=== PATIENT | female | born 1990 | race Caucasian/White ===

== ENCOUNTER → 2018-08-28 | Outpatient (CLI) | payer BC ==
[2018-08-28 08:26] LABS: HCT 35.2 % (34.0-46.0); HGB 11.6 gm/dL (11.4-16.0); MCH 32.2 pg (25.0-35.0); MCHC 33.1 g/dL (31.0-37.0); MCV 97.5 fL (80.0-100.0); Mean Platelet Volume 7.7; Platelet Count 180 k/uL (150-450); RBC 3.61 m/uL (3.80-5.40); RDW 12.6 % (11.5-15.5); WBC 6.1 k/uL (3.8-10.6)
== END | disposition home or self-care (01) ==
LOC: LABWHC1 06:41
PROVIDERS: ATTEND Obstetrics & Gynecology
DX: Z34.82 Encounter for supervision of other normal pregnancy, second trimester (principal)
CPT/HCPCS: 36415; 82950; 85027

== ENCOUNTER 2018-09-05 13:32 | Outpatient (CLI) | payer BC ==
[2018-09-05 15:26] VITALS: BP 109/59; PULSE 86; RESP 16; TEMP 97.5
--- NOTE | 2018-09-05 16:55 | P.MSEPDOC ---
Presenting Problems - Arrival Data Date of Arrival on Unit: 09/05/18 Time of Arrival on Unit: 13:35 Mode of Transport: Ambulatory - Complaint OB-Reason for Admission/Chief Complaint: Other Comment: contractions that are not painful Medical History - Information : 2 Para: 1 Term: 1 : 0 Abortions: Spontaneous or Elective: 0 Number of Living Children: 1 - Gestational Age Gestational Age by NICOL (wks/days): 28 Weeks and 3 Days Review of Systems - Review of Systems Constitutional: No problems Breast: No problems ENT: No problems Cardiovascular: No problems Respiratory: No problems Gastrointestinal: No problems Genitourinary: No problems Musculoskeletal: No problems Neurological: No problems Skin: No problems Vital Signs - Temperature Temperature: 97.5 F Temperature Source: Tympanic - Pulse Right Brachial Pulse Rate: 86 Pulse Assessment Method: Automatic Cuff - Respirations Respiratory Rate: 16 Oxygen Delivery Method: Room Air - Blood Pressure Right Arm Blood Pressure: 109/59 Blood Pressure Mean: 75 Blood Pressure Source: Automatic Cuff Medical Screen Scoring (Pre) - Cervical Exam Dilation: Exam Deferred Effacement: Exam Deferred Membranes: Intact - Uterine Contractions Frequency: N/A Duration: N/A Intensity: N/A - Maternal Vital Signs Maternal Temperature: N/A Maternal Blood Pressure: N/A Signs of Preeclampsia: N/A Maternal Respirations: N/A - Pain Assessment Pain Scale Used: Numeric (1 - 10) Pain Intensity: 0 Pain Management Goal: 0 - Maternal Trauma Maternal Trauma: N/A - Assessment Baseline FHR: 135 Heart Rate - NICHD Category: Category I (Normal) = 0 NST: Reactive Position: N/A Station: N/A - Total Score Total Score (Pre): 0 - Level of Risk Level of Risk: Low (0-5) Physician Notification (Pre) - Physician Notified Physician Notified Date: 09/05/18 Physician Notified Time: 14:38 Physician/Practitioner Notifed:: Dr. Jimenez Spoke With: Dr. Jimenez New Order Received: Yes - Notification Comment Comment: d/c home Disposition - Disposition OB Disposition: Discharge to home Discharge Date: 09/05/18 Discharge Time: 14:42 I agree with the RN Medical Screening Exam: Yes Risk & Benefit of care provided described in d/c instruction: Yes Diagnosis: FALSE LABOR BEFORE 37 COMPLETED WEEKS OF GEST, THIRD TRI
== END 2018-09-05 14:45 | disposition home or self-care (01) ==
LOC: FBPOP 13:32
PROVIDERS: ATTEND Obstetrics & Gynecology
DX: O47.03 False labor before 37 completed weeks of gestation, third trimester (principal); Z3A.28 28 weeks gestation of pregnancy
CPT/HCPCS: 59025; 99213

== ENCOUNTER 2018-11-13 21:45 | Observation (INO) | payer BC ==
[2018-11-13 22:25] LABS: Appearance,Urine Clear (Clear); Bacteria,Urine Occasional /hpf; Bilirubin,Urine Negative (Negative); Blood,Urine Negative (Negative); Color,Urine Light Yellow; Glucose,Urine (UA) Negative (Negative); Ketones,Urine 1+ (Negative); Leukocyte Esterase,Urine Large (Negative); Mucus,Urine Rare /hpf; Nitrite,Urine Negative (Negative); Protein,Urine Negative (Negative); RBC,Urine 1 /hpf (0-5); Specific Gravity,Urine 1.009 (1.001-1.035); Squamous Epithelial Cell,Urine 4 /hpf (0-4); Urobilinogen,Urine <2.0 mg/dL (<2.0); WBC,Urine 14 /hpf (0-5)
[2018-11-13 22:27] LABS: Basophils % (A) 0 %; Eosinophils # (A) 0.1 k/uL (0-0.7); Eosinophils % (A) 2 %; HCT 36.1 % (34.0-46.0); HGB 11.5 gm/dL (11.4-16.0); Lymphocytes # (A) 0.3 k/uL (1.0-4.8); Lymphocytes % (A) 5 %; MCH 31.2 pg (25.0-35.0); MCHC 31.8 g/dL (31.0-37.0); Mean Platelet Volume 7.5; Monocytes # (A) 0.4 k/uL (0-1.0); Monocytes % (A) 6 %; Neutrophils # (A) 5.3 k/uL (1.3-7.7); Neutrophils % (A) 85 %; Platelet Count 116 k/uL (150-450); RBC 3.69 m/uL (3.80-5.40); RDW 12.6 % (11.5-15.5); WBC 6.3 k/uL (3.8-10.6)
[2018-11-13 22:29] VITALS: BP 121/70; PULSE 120; RESP 16; TEMP 100
[2018-11-13] MEDS: LACTATED RINGERS 1,000 ML IV SCH ×2 (22:33→22:59)
[2018-11-14] MEDS ORDERED: ACETAMINOPHEN TAB 500 MG TAB ONE (00:15)
[2018-11-14] MEDS ORDERED: ACETAMINOPHEN TAB 500 MG TAB PO PRN (04:48)
[2018-11-14] MEDS: LACTATED RINGERS 1,000 ML IV SCH ×3 (05:22→06:54)
[2018-11-14 05:49] LABS: Anion Gap 7 mmol/L; Blood Urea Nitrogen 5 mg/dL (7-17); Carbon Dioxide 21 mmol/L (22-30); Chloride 105 mmol/L (98-107); Potassium 3.9 mmol/L (3.5-5.1); Sodium 133 mmol/L (137-145)
--- NOTE | 2018-11-14 06:38 | HP ---
HISTORY AND PHYSICAL PRINCIPAL DIAGNOSIS: Hyperpyrexia. HISTORY OF PRESENT ILLNESS: This 28-year-old, G2, P1, at 38 weeks gestation arrives complaining of hyperpyrexia. She notes that she had fevers of above 101 degrees at home despite Tylenol taken. She had taken one 500 mg Tylenol approximately every 4 hours 3 times today and while it did lower her temperature from 101 down to 100 she was concerned that it was not lowering it to a normal value. She did see Dr. Jimenez earlier today and was diagnosed with a viral like illness. We did have her come in so that we could more thoroughly evaluate her with her current symptomatology. She relates that the symptoms began yesterday and that she began with the typical achiness and sore muscles and sore throat and it has progressed to where she has had temperatures. We did start an IV due to maternal and tachycardia. At this time, both seem to be stable with a category 1 tracing and the baseline in the 150s to 160s. We are admitting her overnight as a precautionary due to symptoms as well as new finding of thrombocytopenia of 116. It was noted that she had a platelet count of 180 at her last evaluation during her 1 hour Glucola screen, however, now is down to 116. It is most likely due to the virus, but we will make sure there is not something else that we are missing during this evaluation. BUN, creatinine are pending. Her hemoglobin is 11 and her white count is 6, which is much more consistent with some type of viral illness than a bacterial infection. Urinalysis was also grossly unremarkable for infection. I did have a long talk with the patient and her and explained the current condition and circumstances. She is jeremías irregularly every 3 to 8 minutes, but was still only dilated to 1 cm and it is possible that some of this may be contributing to her contractions, but at this time she does not appear to be going into active labor. It is possible that she has some type of CMV or mononucleosis, but there is limited that we would do treatment russell. So at this time as far as she with limited risk of polyhydramnios, will defer any further blood draws insofar as trying to diagnose unless things change symptomatically over the next 24 hours. All questions are answered for her at this time. PHYSICAL EXAM: On physical exam, vital signs again are stable with normal blood pressure. Her heart is regular and her lungs are clear. Abdomen is soft. There is no epigastric tenderness. There is no pain to the costovertebral angles. I cannot palpate any lymphadenopathy along her cervical chain or across her neck and supraclavicular region. She denies any swelling in her armpits or other areas that might give further impression as to what the viral illness might be. ASSESSMENT: Intrauterine at 38 weeks with hyperpyrexia and thrombocytopenia. PLAN: Observational care at this time and conservative management with IV hydration. MMODL / IJN: [id number] /
[2018-11-14] MEDS: ACETAMINOPHEN TAB 500 MG TAB PO PRN ×2 (06:53→10:58)
== END 2018-11-14 13:30 | disposition home or self-care (01) ==
LOC: FBPOP 21:45 → 4FBP 23:41
PROVIDERS: ADMIT Obstetrics & Gynecology; ATTEND Obstetrics & Gynecology
DX: O99.12 Other diseases of the blood and blood-forming organs and certain disorders involving the immune mechanism complicating childbirth (principal); D69.6 Thrombocytopenia, unspecified; O99.413 Diseases of the circulatory system complicating pregnancy, third trimester; R00.0 Tachycardia, unspecified; O76 Abnormality in fetal heart rate and rhythm complicating labor and delivery; O99.89 Other specified diseases and conditions complicating pregnancy, childbirth and the puerperium; M79.10 Myalgia, unspecified site; J02.9 Acute pharyngitis, unspecified; Z3A.38 38 weeks gestation of pregnancy
CPT/HCPCS: 80051; 82565; 84520; 85025; 81001; 87086; 87502; G0378 ×2; 87077; 87186

== ENCOUNTER 2018-11-25 16:40 | Inpatient (IN) | payer BC ==
[2018-11-25] MEDS ORDERED: CARBOPROST TROMETHAMINE 250 MCG/ML 1 ML AMP IM PRN (17:10)
[2018-11-25] MEDS ORDERED: LIDOCAINE 0.5% (PF) 5 MG/ML (50 ML SDV) SQ PRN (17:10)
[2018-11-25] MEDS ORDERED: OXYTOCIN 10 UNIT/ML 1 ML VIAL IM PRN (17:10)
[2018-11-25] MEDS ORDERED: TERBUTALINE 1 MG/ML VIAL SQ PRN (17:10)
[2018-11-25] MEDS ORDERED: METHYLERGONOVINE 0.2 MG/ML 1 ML AMP IM PRN (17:10)
[2018-11-25] MEDS ORDERED: LACTATED RINGERS 1,000 ML IV SCH (17:15)
[2018-11-25 17:36] LABS: Basophils % (A) 0 %; Eosinophils # (A) 0.1 k/uL (0-0.7); Eosinophils % (A) 1 %; HCT 33.6 % (34.0-46.0); HGB 11.1 gm/dL (11.4-16.0); Lymphocytes # (A) 1.4 k/uL (1.0-4.8); Lymphocytes % (A) 16 %; MCH 31.2 pg (25.0-35.0); MCV 94.4 fL (80.0-100.0); Mean Platelet Volume 7.4; Monocytes # (A) 0.5 k/uL (0-1.0); Monocytes % (A) 5 %; Neutrophils # (A) 6.9 k/uL (1.3-7.7); Neutrophils % (A) 77 %; RBC 3.56 m/uL (3.80-5.40); RDW 13.2 % (11.5-15.5); WBC 9.1 k/uL (3.8-10.6)
[2018-11-25 17:39] LABS: Platelet Count 326 k/uL (150-450)
[2018-11-25] MEDS ORDERED: LANOLIN CREAM 5 GM TUBE TOPICAL PRN (19:03)
[2018-11-25] MEDS ORDERED: diphenhydrAMINE 50 MG CAP PO PRN (19:03)
[2018-11-25] MEDS ORDERED: SIMETHICONE 80 MG CHEWABLE PO PRN (19:03)
[2018-11-25] MEDS ORDERED: WITCH HAZEL 1 EACH MED..PAD TOPICAL PRN (19:03)
[2018-11-25] MEDS ORDERED: BENZOCAINE/MENTHOL SPRAY 1 GM/SPRAY AEROSOL TOPICAL PRN (19:03)
[2018-11-25] MEDS ORDERED: HYDROcodone/APAP 7.5-325MG 1 EACH TAB PO PRN (19:03)
[2018-11-25] MEDS ORDERED: ACETAMINOPHEN TAB 325 MG TAB PO PRN (19:03)
[2018-11-25] MEDS ORDERED: ZOLPIDEM 5 MG TAB PO PRN (19:03)
[2018-11-25] MEDS ORDERED: HYDROCORTISONE 2.5% RECTAL CREAM 30 GM TUBE RECTAL PRN (19:03)
[2018-11-25] MEDS ORDERED: diphenhydrAMINE 50 MG/ML 1 ML VIAL IVP PRN ×2 (19:03)
[2018-11-25] MEDS ORDERED: diphenhydrAMINE 25 MG CAP PO PRN (19:03)
--- NOTE | 2018-11-25 19:05 | P.HPOB ---
History of Present Illness H&P Date: 11/25/18 Chief Complaint: Intrauterine at term: Active labor Parul is a 20 several at 40 weeks gestation arrives complaining of contractions and dilated to 8 cm. Artificial rupture membranes was performed and clear fluid is noted. A category 1 tracing is noted. Her Precis course has been generally unremarkable and she is feeling well at this time. She did have a fever last week but has resolved since that time. Pertinent labs include AB+ blood type Rh antibody was negative, rubella immune, hepatitis she surface antigen and RPR were both negative. Assessment intrauterine term. Plan expect spontaneous vaginal delivery Past Medical History Additional Past Medical History / Comment(s): interstitial cystitis History of Any Multi-Drug Resistant Organisms: None Reported Past Surgical History: Tonsillectomy Additional Past Surgical History / Comment(s): childhood Past Anesthesia/Blood Transfusion Reactions: No Reported Reaction Past Psychological History: Anxiety Smoking Status: Never smoker Past Alcohol Use History: None Reported Past Drug Use History: None Reported - Past Family History Father Family Medical History: Diabetes Mellitus Medications and Allergies Home Medications Medication Instructions Recorded Confirmed Type Citalopram Hydrobromide [CeleXA] 20 mg PO DAILY 03/11/17 11/25/18 History Pnv No.95/Ferrous Fum/Folic AC 1 tab PO DAILY 03/11/17 11/25/18 History [ Multivitamin Tablet] Allergies Allergy/AdvReac Type Severity Reaction Status Date / Time Penicillins Allergy Rash/Hives Verified 11/25/18 17:07 sulfamethoxazole Allergy Rash/Hives Verified 11/25/18 17:07 [From Bactrim] trimethoprim [From Bactrim] Allergy Rash/Hives Verified 11/25/18 17:07 Exam Osteopathic Statement: *. No significant issues noted on an osteopathic structural exam other than those noted in the History and Physical/Consult. Vital Signs Temp Pulse Resp BP Pulse Ox 11/25/18 17:07 98.3 F 82 16 114/69 100 Intake and Output 11/25/18 11/25/18 11/25/18 06:59 14:59 22:59 Other: Weight 76.204 kg - OBG Physical Exam Breast: both: normal (no masses) Abdomen: bowel sounds normal, no diffuse tenderness, no bruit present, no guarding noted, no hepatomegaly, no splenomegaly, no mass Vulva: both: normal Vagina: normal moisture, no discharge Cervix: no lesion, no discharge Uterus: normal size, normal contour Adnexa: both: normal Anus/Rectum: normal perianal skin, no rectal mass, no hemorrhoids, heme negative Results Result Diagrams: 11/25/18 17:25 Abnormal Lab Results - Last 24 Hours (Table) 11/25/18 Range/Units 17:25 RBC 3.56 L (3.80-5.40) m/uL Hgb 11.1 L (11.4-16.0) gm/dL Hct 33.6 L (34.0-46.0) %
--- NOTE | 2018-11-25 19:06 | P.PROBDLV ---
Vaginal Delivery Note - . Vaginal Delivery Note: Patient progressed complete and pushed with spontaneous vaginal delivery of a viable female over a second-degree midline laceration. Falling deliver the head anterior posterior shoulders were easily delivered with downward upper traction from left occiput anterior position. Once baby was fully developed mouth nares were bulb suctioned and baby was placed on mother's abdomen where the umbilical cord was allowed to pulsate for 40 seconds prior to clamping and cutting. Once this was accomplished nursery personnel was present and assumed care. Placenta was then delivered intact and Pitocin was added to the IV. Perineal laceration was then repaired with 3-0 Vicryl following 1% Xylocaine for for analgesia in usual fashion. scores were 8 and 9 at one and 5 minutes respectively and the weight was 8 lbs. 8 oz. Both mother and baby are stable following delivery.
[2018-11-25] MEDS ORDERED: LIDOCAINE 1% INJ 10MG/ML (20 ML MDV) SQ ONE (19:07)
[2018-11-25] MEDS: IBUPROFEN 600 MG TAB PO PRN (19:11)
[2018-11-25 19:13] VITALS: BMI 27.9
[2018-11-25] MEDS ORDERED: OXYTOCIN 20 UNITS/1000 ML NS 1,000 ML IV SCH (19:15)
[2018-11-25] MEDS: SENNOSIDES-DOCUSATE SODIUM 1 EACH TAB PO SCH (21:40)
[2018-11-26] MEDS: IBUPROFEN 600 MG TAB PO PRN ×2 (08:54→14:15)
[2018-11-26] MEDS: SENNOSIDES-DOCUSATE SODIUM 1 EACH TAB PO SCH (08:54)
--- NOTE | 2018-11-26 09:26 | P.DS ---
Providers Date of admission: 11/25/18 17:05 Expected date of discharge: 11/26/18 Attending physician: Kei Anaya Primary care physician: Radha Jimenez - Discharge Diagnosis(es) (1) Normal vaginal delivery Current Visit: No Status: Acute Hospital Course: Patient presented in active labor. She underwent a normal vaginal delivery. Her course was uncomplicated. She'll be discharged home day #1 in stable condition to follow-up with me in 6 weeks. Plan - Discharge Summary New Discharge Prescriptions: New Ibuprofen [Motrin] 600 mg PO Q6HR PRN #30 tab PRN Reason: Mild Pain Or Fever >= 100.5 No Action Pnv No.95/Ferrous Fum/Folic AC [ Multivitamin Tablet] 1 tab PO DAILY Citalopram Hydrobromide [CeleXA] 20 mg PO DAILY Discharge Medication List Citalopram Hydrobromide [CeleXA] 20 mg PO DAILY 03/11/17 [History] Pnv No.95/Ferrous Fum/Folic AC [ Multivitamin Tablet] 1 tab PO DAILY 03/11/17 [History] Ibuprofen [Motrin] 600 mg PO Q6HR PRN #30 tab 11/26/18 [Rx] Follow up Appointment(s)/Referral(s): Radha Jimenez DO [Primary Care Provider] - 6 Weeks Discharge Disposition: HOME SELF-CARE
[2018-11-26 17:35] VITALS: BP 105/61; PULSE 89; RESP 16; TEMP 98.3
== END 2018-11-26 19:29 | disposition home or self-care (01) | DRG 807 ==
LOC: FBPOP 16:40 → 4FBP 17:05
PROVIDERS: ADMIT Obstetrics & Gynecology; ATTEND Obstetrics & Gynecology
PROC: 10E0XZZ Delivery of Products of Conception, External Approach (ICD-10-PCS; principal; 2018-11-25)
PROC: 0KQM0ZZ Repair Perineum Muscle, Open Approach (ICD-10-PCS; principal; 2018-11-25)
PROC: 10907ZC Drainage of Amniotic Fluid, Therapeutic from Products of Conception, Via Natural or Artificial Opening (ICD-10-PCS; principal; 2018-11-25)
DX: O70.1 Second degree perineal laceration during delivery (principal); Z37.0 Single live birth; O99.344 Other mental disorders complicating childbirth; F41.9 Anxiety disorder, unspecified; Z3A.40 40 weeks gestation of pregnancy; Z79.899 Other long term (current) drug therapy; Z83.3 Family history of diabetes mellitus; Z90.89 Acquired absence of other organs; Z88.0 Allergy status to penicillin; Z88.2 Allergy status to sulfonamides; Z87.440 Personal history of urinary (tract) infections
CPT/HCPCS: 85025; 86850; 86900; 86901

== ENCOUNTER → 2023-11-21 | Outpatient (CLI) | payer BC ==
--- NOTE | 2023-11-21 16:29 | XR ---
EXAMINATION TYPE: XR foot complete RT DATE OF EXAM: 11/21/2023 COMPARISON: 04/26/2012 HISTORY: Pain TECHNIQUE: 3 view right foot FINDINGS: Plantar calcaneal heel spur is present. Soft tissues are unremarkable. Joint spaces are preserved. No acute fractures or dislocations evident . Follow up exams can be performed 7-10 days from acute trauma for continued pain. IMPRESSION: 1. No acute osseous abnormalities right foot
== END | disposition home or self-care (01) ==
LOC: RADXRMAIN 09:11
PROVIDERS: ATTEND Internal Medicine
DX: M79.671 Pain in right foot (principal)

== ENCOUNTER → 2024-02-14 | Outpatient (CLI) | payer BC | END | disposition home or self-care (01) | LOC: LABPRL 11:15 | DX: R30.0 Dysuria (principal); R35.0 Frequency of micturition | CPT/HCPCS: 87086 ==

== ENCOUNTER 2024-05-10 08:05 | Emergency (ER) | payer BC ==
[2024-05-10 08:20] VITALS: RESP 16
[2024-05-10] MEDS: SODIUM CHLORIDE 0.9% 1,000 ML IV ONE (08:38)
[2024-05-10 08:43] LABS: Basophils % (A) 1 %; Eosinophils # (A) 0.1 k/uL (0-0.7); Eosinophils % (A) 2 %; HCT 43.5 % (34.0-46.0); HGB 13.6 gm/dL (11.4-16.0); Lymphocytes # (A) 2.4 k/uL (1.0-4.8); Lymphocytes % (A) 40 %; MCH 29.6 pg (25.0-35.0); MCHC 31.3 g/dL (31.0-37.0); MCV 94.5 fL (80.0-100.0); Mean Platelet Volume 7.4; Monocytes # (A) 0.5 k/uL (0-1.0); Monocytes % (A) 8 %; Neutrophils # (A) 2.9 k/uL (1.3-7.7); Neutrophils % (A) 48 %; Platelet Count 264 k/uL (150-450)
[2024-05-10 08:57] LABS: ALT 16 U/L (4-34); AST 20 U/L (14-36); African American GFR (CKD) >90 (>60 ml/min/1.73 sqM); Alkaline Phosphatase 41 U/L (38-126); Anion Gap 5 mmol/L; Blood Urea Nitrogen 18 mg/dL (7-17); Calcium 8.7 mg/dL (8.4-10.2); Carbon Dioxide 26 mmol/L (22-30); Chloride 108 mmol/L (98-107); Glucose 76 mg/dL (74-99); Magnesium 2.1 mg/dL (1.6-2.3); Non-African American GFR(CKD) >90 (>60 ml/min/1.73 sqM); Potassium 4.1 mmol/L (3.5-5.1); Sodium 139 mmol/L (137-145); Total Bilirubin 0.5 mg/dL (0.2-1.3); Total Protein 6.6 g/dL (6.3-8.2)
--- NOTE | 2024-05-10 09:01 | XR ---
EXAMINATION TYPE: XR chest 2V DATE OF EXAM: 05/10/2024 8:51 AM COMPARISON: None. CLINICAL INDICATION: Female, 33 years old with history of sob, TECHNIQUE: XR chest 2V view(s) obtained. FINDINGS: The heart size is normal. The pulmonary vasculature is normal. The lungs are clear. IMPRESSION: 1. No acute pulmonary process. [facility], , 05/10/2024 8:59 AM
--- NOTE | 2024-05-10 09:23 | ED ---
Weakness HPI - General Chief complaint: Weakness Stated complaint: weakness,post bronchitis Time Seen by Provider: 05/10/24 08:15 Source: patient, RN notes reviewed Mode of arrival: ambulatory Limitations: no limitations - History of Present Illness Initial comments: 33-year-old female presents emergency department chief complaint of generalized weakness, post URI symptoms. Patient states that she has been sick for over a week. She was initially placed on azithromycin and prednisone. She states that she started to feel better but then went back because she had some burning in her chest still-productive cough worsening symptoms. Patient did have an x-ray at that time and she thought maybe she had some patchy area of pneumonia told her she more likely just had pleurisy and sent her home. They ended up calling in dexamethasone 6 mg in which she was advised to take 2 tablets once she states that the next day she started having tingling of her legs she felt very off and generally not well. She states that she has no weakness she does not have any current significant paresthesias or lower extremity or any weakness of her upper extremities. She states she has some mild URI symptoms - Related Data Home Medications Medication Instructions Recorded Confirmed Citalopram Hydrobromide [CeleXA] 20 mg PO DAILY 03/11/17 11/25/18 Pnv No.95/Ferrous Fum/Folic AC 1 tab PO DAILY 03/11/17 11/25/18 [ Multivitamin Tablet] Previous Rx's Medication Instructions Recorded Ibuprofen [Motrin] 600 mg PO Q6HR PRN #30 tab 11/26/18 Allergies Allergy/AdvReac Type Severity Reaction Status Date / Time Penicillins Allergy Rash/Hives Verified 05/10/24 08:20 sulfamethoxazole Allergy Rash/Hives Verified 05/10/24 08:20 [From Bactrim] trimethoprim [From Bactrim] Allergy Rash/Hives Verified 05/10/24 08:20 Review of Systems ROS Statement: Those systems with pertinent positive or pertinent negative responses have been documented in the HPI. ROS Other: All systems not noted in ROS Statement are negative. Past Medical History Additional Past Medical History / Comment(s): interstitial cystitis History of Any Multi-Drug Resistant Organisms: None Reported Past Surgical History: Tonsillectomy Additional Past Surgical History / Comment(s): childhood Past Anesthesia/Blood Transfusion Reactions: No Reported Reaction Past Psychological History: Anxiety Past Alcohol Use History: None Reported Past Drug Use History: None Reported - Past Family History Father Family Medical History: Diabetes Mellitus General Exam Limitations: no limitations General appearance: alert, in no apparent distress Head exam: Present: atraumatic, normocephalic, normal inspection Eye exam: Present: normal appearance, PERRL, EOMI. Absent: scleral icterus, conjunctival injection, periorbital swelling ENT exam: Present: normal exam, normal oropharynx, mucous membranes moist, TM's normal bilaterally Neck exam: Present: normal inspection, full ROM. Absent: tenderness, meningismus, lymphadenopathy Respiratory exam: Present: normal lung sounds bilaterally. Absent: respiratory distress, wheezes, rales, rhonchi, stridor Cardiovascular Exam: Present: regular rate, normal rhythm, normal heart sounds. Absent: systolic murmur, diastolic murmur, rubs, gallop, clicks GI/Abdominal exam: Present: soft, normal bowel sounds. Absent: distended, tenderness, guarding, rebound, rigid Neurological exam: Present: alert, oriented X3, CN II-XII intact, reflexes normal. Absent: motor sensory deficit Skin exam: Present: warm, dry, intact, normal color. Absent: rash Course Vital Signs 05/10/24 08:16 Temperature 97.7 F Pulse Rate 99 Respiratory 16 Rate Blood Pressure 113/75 O2 Sat by Pulse 100 Oximetry Medical Decision Making - Medical Decision Making Was pt. sent in by a medical professional or institution (Dr. PA, TELEPHONE SWITCHBOARD OPERATOR, urgent care, hospital, or [facility]...) When possible be specific @ -No Did you speak to anyone other than the patient for history (EMS, parent, family, police, friend...)? What history was obtained from this source @ -No Did you review nursing and triage notes (agree or disagree)? Why? @ -I reviewed and agree with nursing and triage notes Were old charts reviewed (outside hosp., previous admission, EMS record, old EKG, old radiological studies, urgent care reports/EKG's, [facility] records)? Report findings @ -No old charts were reviewed Differential Diagnosis (chest pain, altered mental status, abdominal pain women, abdominal pain men, vaginal bleeding, weakness, fever, dyspnea, syncope, headache, dizziness, GI bleed, back pain, seizure, CVA, palpatations, mental health, musculoskeletal)? @ -COVID 19, RSV, influenza, pneumonia, acute bronchitis, URI, this list is not all inclusive EKG interpreted by me (3pts min.). @ -None X-rays interpreted by me (1pt min.). @ -Chest x-ray shows no acute cardiopulmonary process CT interpreted by me (1pt min.). @ -None done U/S interpreted by me (1pt. min.). @ -None done What testing was considered but not performed or refused? (CT, X-rays, U/S, labs)? Why? @ -None What meds were considered but not given or refused? Why? @ -None Did you discuss the management of the patient with other professionals (professionals i.e. , PA, TELEPHONE SWITCHBOARD OPERATOR, lab, RT, psych nurse, social services technician, entertainment dancer, teacher, traffic control officer, piano case and bench assembler)? Give summary @ -No Was smoking cessation discussed for >3mins.? @ -No Was critical care preformed (if so, how long)? @ -No Were there social determinants of health that impacted care today? How? (Ho melessness, low income, unemployed, alcoholism, drug addiction, transportation, low edu. Level, literacy, decrease access to med. care, detention, rehab)? @ -No Was there de-escalation of care discussed even if they declined (Discuss DNR or withdrawal of care, Hospice)? DNR status @ -No What co-morbidities impacted this encounter? (DM, HTN, Smoking, COPD, CAD, Cancer, CVA, ARF, Chemo, Hep., AIDS, mental health diagnosis, sleep apnea, morbid obesity)? @ -None Was patient admitted / discharged? Hospital course, mention meds given and route, prescriptions, significant lab abnormalities, going to OR and other pertinent info. @ -[Discharge patient laboratory studies and x-ray unremarkable. Did review medications given emergent care and she was given 12 mg of dexamethasone x 1 in which symptoms started after this I do believe that most of her symptoms related to medication reaction adverse reaction. Patient feels comfortable discharge patient has URI return transfer discussed. Undiagnosed new problem with uncertain prognosis? @ -No Drug Therapy requiring intensive monitoring for toxicity (Heparin, Nitro, Insulin, Cardizem)? @ -No Were any procedures done? @ -No Diagnosis/symptom? @ URI, medication reaction Acute, or Chronic, or Acute on Chronic? @ -Acute Uncomplicated (without systemic symptoms) or Complicated (systemic symptoms)? @ -Uncomplicated Side effects of treatment? @ -No Exacerbation, Progression, or Severe Exacerbation? @ -No Poses a threat to life or bodily function? How? (Chest pain, [place], NM, pneumonia, PE, COPD, DKA, ARF, appy, cholecystitis, CVA, Diverticulitis, Homicidal, Suicidal, threat to staff... and all critical care pts) @ -No - Lab Data Result diagrams: 05/10/24 08:29 05/10/24 08:29 Lab Results 05/10/24 05/10/24 05/10/24 Range/Units 08: 08: 08:29 WBC 6.0 (3.8-10.6) k/uL RBC 4.60 (3.80-5.40) m/uL Hgb 13.6 (11.4-16.0) gm/dL Hct 43.5 (34.0-46.0) % MCV 94.5 (80.0-100.0) fL MCH 29.6 (25.0-35.0) pg MCHC 31.3 (31.0-37.0) g/dL RDW 12.0 (11.5-15.5) % Plt Count 264 (150-450) k/uL MPV 7.4 Neutrophils % 48 % Lymphocytes % 40 % Monocytes % 8 % Eosinophils % 2 % Basophils % 1 % Neutrophils # 2.9 (1.3-7.7) k/uL Lymphocytes # 2.4 (1.0-4.8) k/uL Monocytes # 0.5 (0-1.0) k/uL Eosinophils # 0.1 (0-0.7) k/uL Basophils # 0.0 (0-0.2) k/uL Sodium 139 (137-145) mmol/L Potassium 4.1 (3.5-5.1) mmol/L Chloride 108 H (98-107) mmol/L Carbon Dioxide 26 (22-30) mmol/L Anion Gap 5 mmol/L BUN 18 H (7-17) mg/dL Creatinine 0.74 (0.52-1.04) mg/dL Est GFR (CKD-EPI)AfAm >90 (>60 ml/min/1.73 sqM) Est GFR (CKD-EPI)NonAf >90 (>60 ml/min/1.73 sqM) Glucose 76 (74-99) mg/dL Calcium 8.7 (8.4-10.2) mg/dL Magnesium 2.1 (1.6-2.3) mg/dL Total Bilirubin 0.5 (0.2-1.3) mg/dL AST 20 (14-36) U/L ALT 16 (4-34) U/L Alkaline Phosphatase 41 (38-126) U/L Total Protein 6.6 (6.3-8.2) g/dL Albumin 4.0 (3.5-5.0) g/dL Heterophile Antibody Negative (Negative) Disposition Clinical Impression: URI (upper respiratory infection), Medication reaction Disposition: HOME SELF-CARE Condition: Stable Instructions (If sedation given, give patient instructions): Upper Respiratory Infection (ED) Additional Instructions: Please return to the Emergency Department if symptoms worsen or any other concerns. Is patient prescribed a controlled substance at d/c from ED?: No Referrals: Christian Hernandes MD [Primary Care Provider] - 1-2 days Time of Disposition: 10:09
[2024-05-10 10:23] VITALS: BP 110/72; PULSE 73; TEMP 98
== END 2024-05-10 10:35 | disposition home or self-care (01) ==
LOC: EC 08:05
DX: R53.1 Weakness (principal); T38.0X5A Adverse effect of glucocorticoids and synthetic analogues, initial encounter; J06.9 Acute upper respiratory infection, unspecified; Z88.0 Allergy status to penicillin; Z88.2 Allergy status to sulfonamides; Z88.1 Allergy status to other antibiotic agents
CPT/HCPCS: 36415; 71046; 80053; 83735; 85025; 86308; 96360; 99285

== ENCOUNTER → 2024-12-23 | Outpatient (CLI) | payer BC | END | disposition home or self-care (01) | LOC: LABWHC1 10:48 | PROVIDERS: ATTEND Specialist | DX: Z01.812 Encounter for preprocedural laboratory examination (principal) | CPT/HCPCS: 36415; 85730 ==